=== PATIENT | male | born 1950 | race Asian ===

== ENCOUNTER 2017-07-10 20:04 | Emergency (ER) | payer BC ==
[~2017-07-10] VITALS: Ht 162.6 cm; Wt 84.8 kg
[2017-07-10 20:08] VITALS: BP_SYST 144
[2017-07-10 20:57] LABS: BASOPHILS # (AUTO) 0.1 K/uL (0.0-0.2); BASOPHILS % (AUTO) 0.9 % (0.0-2.0); CALCIUM 9.5 mg/dL (8.4-11.0); CREATININE 1.84 mg/dL (0.55-1.30); EOSINOPHILS # (AUTO) 0.1 K/uL (0.0-0.4); EOSINOPHILS % (AUTO) 0.9 % (0.0-4.0); HEMATOCRIT 46.6 % (36-54); HEMOGLOBIN 15.5 g/dL (14.0-18.0); LYMPHOCYTES # (AUTO) 1.2 K/uL (1.0-5.5); LYMPHOCYTES % (AUTO) 11.7 % (20.5-51.5); MEAN CORPUSCULAR HEMOGLOBIN 29 pg (27-31); MEAN CORPUSCULAR HGB CONC 33 % (32-36); MEAN CORPUSCULAR VOLUME 87 fL (79.0-98.0); MONOCYTES # (AUTO) 0.8 K/uL (0.0-1.0); MONOCYTES % (AUTO) 8.1 % (1.7-9.3); NEUTROPHILS # (AUTO) 7.9 K/uL (1.8-7.7); NEUTROPHILS % (AUTO) 78.4 % (40.0-70.0); PLATELET COUNT (AUTO) 218 K/uL (130-430); POTASSIUM 3.9 mmol/L (3.5-5.1); RED BLOOD CELL COUNT(AUTO) 5.37 MIL/uL (4.2-6.2); RED CELL DISTRIBUTION WIDTH 13.3 % (9.0-15.0); WHITE BLOOD COUNT (AUTO) 10.1 K/uL (4.8-10.8)
[2017-07-10 21:04] LABS: ALBUMIN 4.3 g/dL (3.4-4.8); TOTAL BILIRUBIN 0.7 mg/dL (0.0-1.0)
[2017-07-10] MEDS ORDERED: NACL 0.9% 1,000 ML IV ONE ×2 (21:15→22:30)
[2017-07-10] MEDS ORDERED: MORPHINE 4 MG/ML INJ. SYRINGE IVP ONE (21:15)
[2017-07-10 21:20] LABS: BILIRUBIN,URINE 1+ (NEGATIVE); BLOOD, URINE 3+ (NEGATIVE); CLARITY/URINE CLOUDY (CLEAR); COLOR,URINE BROWN (YELLOW); GLUCOSE,URINE NEGATIVE (NEGATIVE); KETONES,URINE NEGATIVE (NEGATIVE); LEUKOCYTE ESTERASE ,URINE NEGATIVE (NEGATIVE); NITRITE, URINE POSITIVE (NEGATIVE); PROTEIN URINE 2+ (NEGATIVE); UROBILINOGEN,URINE 0.2 (0.2-1.0)
[2017-07-10] MEDS ORDERED: cefTRIAXone 1 GM IVPB PREMIX 50 ML IV ONE (21:30)
[2017-07-10 21:50] LABS: BACTERIA,URINE MANY /HPF (None Seen); RBC,URINE >100 /HPF (0-3); WBC,URINE 20-50 /HPF (0-3)
[2017-07-10 21:51] LABS: MUCUS,URINE None Seen /LPF (None Seen)
[2017-07-10] MEDS ORDERED: LOSA25TA11 PO (22:32)
[2017-07-10] MEDS ORDERED: FLO110 INH (22:32)
[2017-07-10] MEDS ORDERED: LIP10 PO (22:32)
[2017-07-10] MEDS ORDERED: ASA81 PO (22:32)
[2017-07-10] MEDS ORDERED: GLIP5TAB13 PO (22:32)
[2017-07-10] MEDS ORDERED: ASCO500T20 PO (22:32)
[2017-07-10] MEDS ORDERED: METF1000 PO (22:32)
[2017-07-10] MEDS ORDERED: ALBMDI INH (22:32)
[2017-07-10 23:19] VITALS: BP_SYST 152
== END 2017-07-10 23:19 | disposition home or self-care (01) ==
LOC: SED 20:04
DX: K85.90 Acute pancreatitis without necrosis or infection, unspecified (principal); K80.20 Calculus of gallbladder without cholecystitis without obstruction; N20.0 Calculus of kidney; N39.0 Urinary tract infection, site not specified; I10 Essential (primary) hypertension; E11.9 Type 2 diabetes mellitus without complications; Z79.899 Other long term (current) drug therapy
CPT/HCPCS: 36415; 74176; 76700; 80053; 81000; 83605; 83690; 85025; 87040; 87086; 96361; 96365; 96375; 99285; J0696; J2270; J7030

== ENCOUNTER 2019-02-07 22:00 | Inpatient (IN) | payer BC, OTHER ==
[~2019-02-07] VITALS: Ht 162.6 cm; Wt 84.9 kg
[~2019-02-07 22:00] MED LIST: ALBMDI INH; ASA81 PO; ASCO500T20 PO; FLO110 INH; GLIP5TAB13 PO; LIP10 PO; LOSA25TA18 PO; METF1000 PO
[2019-02-07 22:20] VITALS: BP_SYST 199
--- NOTE | 2019-02-07 22:20 | NUR ---
Patient to ER bed 02 to gown for evaluation. Side rails up.
--- NOTE | 2019-02-07 22:35 | NUR ---
Pt brought in by family c/o abdominal pain 01/19 wih increasing severity, nausea and vomiting x2. pt awake alert, oriented. Pt denies chest pain, sob. Pt denies any other medical complaint at this time. 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 Pt states that pain began approx 5 o clock today with increasing severity. Pt in mild distress, guarding abdomen at this time. Pt vs taken and remains on cardiac and VS monitor.
--- NOTE | 2019-02-07 22:40 | NUR ---
ER at bedside examining patient.
[2019-02-07] MEDS ORDERED: MORPHINE 4 MG/ML INJ. SYRINGE IVP ONE (22:45)
[2019-02-07] MEDS ORDERED: ESMOLOL HCL/SOD CL 250 ML IV PRN (22:45)
[2019-02-07] MEDS ORDERED: LIP20 PO (22:46)
--- NOTE | 2019-02-07 22:51 | NUR ---
Pt Taken to radiology department with ACLS Staff and radiology staff bedside via tawny
[2019-02-07 23:02] LABS: BASOPHILS # (AUTO) 0.1 K/uL (0.0-0.2); BASOPHILS % (AUTO) 0.5 % (0.0-2.0); EOSINOPHILS # (AUTO) 0.2 K/uL (0.0-0.4); EOSINOPHILS % (AUTO) 1.5 % (0.0-4.0); HEMATOCRIT 46.8 % (36-54); HEMOGLOBIN 15.6 g/dL (14.0-18.0); LYMPHOCYTES # (AUTO) 1.5 K/uL (1.0-5.5); LYMPHOCYTES % (AUTO) 14.2 % (20.5-51.5); MEAN CORPUSCULAR HEMOGLOBIN 30 pg (27-31); MEAN CORPUSCULAR HGB CONC 33 % (32-36); MEAN CORPUSCULAR VOLUME 88 fL (79.0-98.0); MONOCYTES # (AUTO) 0.6 K/uL (0.0-1.0); MONOCYTES % (AUTO) 5.3 % (1.7-9.3); NEUTROPHILS # (AUTO) 8.3 K/uL (1.8-7.7); NEUTROPHILS % (AUTO) 78.5 % (40.0-70.0); PLATELET COUNT (AUTO) 209 K/uL (130-430); RED CELL DISTRIBUTION WIDTH 13.6 % (9.0-15.0); WHITE BLOOD COUNT (AUTO) 10.5 K/uL (4.8-10.8)
[2019-02-07] MEDS ORDERED: ONDANSETRON HCL 4 MG/2 ML VIAL ONE (23:02)
[2019-02-07] MEDS ORDERED: IOHEXOL 100 ML IV ONE (23:06)
[2019-02-07 23:15] LABS: ANION GAP 6 (5-15); CHLORIDE 99 mmol/L (98-107); CREATININE 1.59 mg/dL (0.55-1.30); GLUCOSE 213 mg/dL (70-99); POTASSIUM 4.2 mmol/L (3.5-5.1); SODIUM SERUM 134 mmol/L (136-145); UREA NITROGEN, BLOOD 25 mg/dL (8-21)
--- NOTE | 2019-02-07 23:15 | NUR ---
Returned from radiology, back to [facility].
[2019-02-07 23:16] LABS: GFR AFRICAN AMERICAN 56 mL/min (>90)
[2019-02-07 23:31] LABS: ALANINE AMINOTRANSFERASE 44 U/L (12-78); ALBUMIN 4.3 g/dL (3.4-4.8); ASPARTATE AMINOTRANSFERASE 24 U/L (10-37); TOTAL BILIRUBIN 0.5 mg/dL (0.0-1.0)
[2019-02-07 23:35] LABS: ALCOHOL, BLOOD < 3 mg/dL (<10)
--- NOTE | 2019-02-07 23:35 | NUR ---
Pt tolerating Pain medication and Esmolol well. Pt responding to Iv therapy well, with expected results. Pt remains restless and guarding of abdomen
[2019-02-07 23:39] LABS: BILIRUBIN,URINE NEGATIVE (NEGATIVE); BLOOD, URINE 1+ (NEGATIVE); CLARITY/URINE CLEAR (CLEAR); COLOR,URINE YELLOW (YELLOW); GLUCOSE,URINE 1+ (NEGATIVE); KETONES,URINE TRACE (NEGATIVE); LEUKOCYTE ESTERASE ,URINE NEGATIVE (NEGATIVE); NITRITE, URINE NEGATIVE (NEGATIVE); PH,URINE 6.5 (5.0-8.0); PROTEIN URINE 2+ (NEGATIVE); UROBILINOGEN,URINE 0.2 (0.2-1.0)
[2019-02-07 23:51] LABS: BARBITURATE, URINE NEGATIVE (NEG <=200); BENZODIAZEPINE, URINE NEGATIVE (NEG <=150); CANNABINOID, URINE NEGATIVE (NEG <=50); COCAINE, URINE NEGATIVE (NEG <=150); METHAMPHETAMINES SCREEN,URINE NEGATIVE (NEG <=500); OPIATE, URINE POSITIVE (NEG <=100); PHENCYCLIDINE SCREEN,URINE NEGATIVE (NEG <=25); UR TRICYCLIC ANTIDEPRESSANTS NEGATIVE (NEG <=300); URINE AMPHETAMINE NEGATIVE (NEG <=500); URINE METHADONE NEGATIVE (NEG <=200); URINE OXYCODONE SCREEN NEGATIVE (NEG <=100); URINE PROPOXYPHENE SCREEN NEGATIVE (NEG <=300)
[2019-02-08 00:13] LABS: BACTERIA,URINE FEW /HPF (None Seen); WBC,URINE 0-3 /HPF (0-3)
[2019-02-08] MEDS ORDERED: PIPERACILLIN/TAZO 3.375 GM in NS 50 ML IV ONE (00:15)
--- NOTE | 2019-02-08 00:20 | NUR ---
Pt States home medications are unknown, and dosages are unknown. Pt states that his daughter will bring medications in AM.
[2019-02-08] MEDS ORDERED: NACL 0.9% 1,000 ML IV ONE (00:45)
--- NOTE | 2019-02-08 00:58 | NUR ---
Called For Admit
[2019-02-08] MEDS ORDERED: ONDANSETRON HCL 4 MG/2 ML VIAL IVP PRN (01:15)
[2019-02-08] MEDS ORDERED: HYDROmorphone 1 MG INJ. 1 MG/ML AMPUL IVP PRN (01:15)
[2019-02-08] MEDS ORDERED: cloNIDine HCL 0.1 MG TABLET PO PRN ×2 (01:15→18:00)
--- NOTE | 2019-02-08 01:20 | NUR ---
Patient will be admitted to care of . Admitted to tele unit. Belongings list completed. Orders recieved and entered.
[2019-02-08] MEDS ORDERED: fentaNYL CITRATE/PF 100 MCG/2 ML AMP IVP ONE ×2 (01:30)
[2019-02-08] MEDS ORDERED: PIPERACILLIN/TAZOBACTAM 3.375 GM/VIAL (ZOSYN) IV ONE (01:57)
--- NOTE | 2019-02-08 02:08 | NUR ---
Patient will be admitted to [facility]. Admitted to Tele unit. Will go to room 120B. Belongings list completed. Summary report printed. Report will be given at bedside.
--- NOTE | 2019-02-08 02:08 | NUR ---
Transfer to Telemetry via ACLS protocol. Licensed nurse present. IV present no signs or symptoms of infiltration.
--- NOTE | 2019-02-08 02:15 | NUR ---
ADMISSION NOTES ADMITTED PATIENT FROM ER 68 Y/O MALE FOR UNCONTROLLED HTN AND ABDOMINAL PAIN. PATIENT AAO X4. BREATHING UNLABORED ON ROOM AIR. PATIENT PROVIDED ORIENTATION TO ROOM, CALL LIGHT SYSTEM, BED AND TV CONTROLS. PATIENT STILL C/O ABDOMINAL PAIN 09/19. BED IN LOWEST LOCKED POSITION. CALL LIGHT WITH IN REACH.
--- NOTE | 2019-02-08 02:35 | NUR ---
CONSULT: CONSULT CALLED FOR DR. ROBBINS I SPOKE WITH ZEKE DEY REASON FOR CONSULT: UNCONTROLLED HYPERTENSION REQUESTING CONSULT: DR. LOPEZ LAP CHECKER PHONE NUMBER: [phone]
[2019-02-08] MEDS: HYDROmorphone 1 MG INJ. 1 MG/ML AMPUL IVP PRN ×2 (02:59→07:26)
--- NOTE | 2019-02-08 02:59 | NUR ---
PAIN MGT/BP PATIENT MEDICATED WITH DILAUDID 1 MG ORDERED FOR C/O 810 ABDOMINAL PAIN. CLONIDINE 0.1 MG FOR BP OF 182/87. AT BEDSIDE.
[2019-02-08 03:05] VITALS: BP_SYST 182
--- NOTE | 2019-02-08 05:55 | NUR ---
[id number]: CONSULT FOR DR. SANG UP I SPOKE WITH GENE EXCHANGE REASON FOR CONSULT: ABD PAIN REQUESTING CONSULT: DR. LOPEZ BRIDAL SALES CONSULTANT PHONE NUMBER: [phone]
[2019-02-08] MEDS: INSULIN REGULAR, HUMAN 100 UNITS/ML, 10 ML VIAL (humuLIN R) SUBCUT PRN ×3 (06:11→20:19)
--- NOTE | 2019-02-08 06:33 | NUR ---
CLOSING NOTES PATIENT RESTING IN BED. BREATHING UNLABORED ON ROOM AIR. AM FINGER STICK SUGAR 165. 2 UNITS OF REGULAR INSULIN GIVEN PER SLIDING SCALE ORDER. BP RECHECKED 154/[address] DOMÍNGUEZ CALLED BACK FOR SURGICAL CONSULT PER MD HE COME SEE PATIENT TODAY. PATIENT NEEDS ATTENDED. BED IN LOWEST LOCKED POSITION. CALL LIGHT WITH IN REACH. AT BEDSIDE.
--- NOTE | 2019-02-08 07:20 | NUR ---
OPENING NOTE: Received SBAR report and plan of care from inside sales director RN
[2019-02-08 08:00] VITALS: BP_SYST 122
--- NOTE | 2019-02-08 09:00 | NUR ---
Patient resting in bed, at bedside. Patient denies chest pain, denies SOB, states that stomach pain has become manageable with PRN pain med given on powder worker tnt.
--- NOTE | 2019-02-08 09:55 | NUR ---
Radiology at bedside for chest xray
[2019-02-08 10:03] LABS: AMYLASE 75 U/L (0-100); CHOLESTEROL 123 mg/dL (<200); HDL CHOLESTEROL 46 mg/dL (>45); LDL CHOLESTEROL 68 mg/dL (<100); LIPASE 216 U/L (73-393); TRIGLYCERIDES 39 mg/dL (30-150)
--- NOTE | 2019-02-08 10:25 | NUR ---
Pickle Processor at bedside for echocardiogram
[2019-02-08] MEDS: NACL 0.9% 1,000 ML IV SCH ×2 (10:31→22:31)
--- NOTE | 2019-02-08 11:00 | NUR ---
Patient remains AOx4, verbal and ambulatory. Patient resting in bed with family at bedside. Breathing is even and unlabored, no signs of distress noted. #20 IV to RT AC intact, patent with IVF pump running.
[2019-02-08 11:23] VITALS: BP_SYST 113
--- NOTE | 2019-02-08 13:00 | NUR ---
Patient tolerating clear liquid diet well. Assisted patient to bathroom, patient ambulated well with a steady gait. Family is at bedside. No signs of distress noted.
[2019-02-08] MEDS ORDERED: DEXTROSE 50% JECT 50 ML DISP.SYRIN IVP PRN (14:15)
[2019-02-08 14:33] LABS: BASOPHILS # (AUTO) 0.1 K/uL (0.0-0.2); BASOPHILS % (AUTO) 0.6 % (0.0-2.0); EOSINOPHILS # (AUTO) 0.1 K/uL (0.0-0.4); EOSINOPHILS % (AUTO) 1.2 % (0.0-4.0); HEMATOCRIT 42.3 % (36-54); HEMOGLOBIN 14.1 g/dL (14.0-18.0); LYMPHOCYTES # (AUTO) 1.6 K/uL (1.0-5.5); LYMPHOCYTES % (AUTO) 15.7 % (20.5-51.5); MEAN CORPUSCULAR HEMOGLOBIN 29 pg (27-31); MEAN CORPUSCULAR HGB CONC 33 % (32-36); MEAN CORPUSCULAR VOLUME 88 fL (79.0-98.0); MONOCYTES # (AUTO) 1.1 K/uL (0.0-1.0); MONOCYTES % (AUTO) 11.1 % (1.7-9.3); NEUTROPHILS # (AUTO) 7.1 K/uL (1.8-7.7); NEUTROPHILS % (AUTO) 71.4 % (40.0-70.0); PLATELET COUNT (AUTO) 185 K/uL (130-430); RED BLOOD CELL COUNT(AUTO) 4.79 MIL/uL (4.2-6.2); RED CELL DISTRIBUTION WIDTH 13.8 % (9.0-15.0)
[2019-02-08 14:47] LABS: ANION GAP 5 (5-15); CALCIUM 8.1 mg/dL (8.4-11.0); CHLORIDE 100 mmol/L (98-107); GLUCOSE 150 mg/dL (70-99); POTASSIUM 3.8 mmol/L (3.5-5.1); SODIUM SERUM 133 mmol/L (136-145); UREA NITROGEN, BLOOD 20 mg/dL (8-21)
--- NOTE | 2019-02-08 14:50 | NUR ---
Nuclear Spectroscopist at bedside to transport patient to radiology for CT of chest.
[2019-02-08 14:53] LABS: PROTHROMBIN TIME 10.3 SECS (9.5-12.5)
[2019-02-08 14:55] LABS: GFR AFRICAN AMERICAN 56 mL/min (>90)
[2019-02-08 14:56] LABS: ALANINE AMINOTRANSFERASE 34 U/L (12-78); ALBUMIN 3.5 g/dL (3.4-4.8); ASPARTATE AMINOTRANSFERASE 15 U/L (10-37); PHOSPHORUS 3.7 mg/dL (2.7-4.5); TOTAL BILIRUBIN 0.7 mg/dL (0.0-1.0); URIC ACID 6.2 mg/dL (2.4-7.0)
--- NOTE | 2019-02-08 15:00 | NUR ---
Patient resting in bed, no complaints of any kind. Denies chest pain, denies SOB, no signs of distress noted. Addendum: 02/08/19 at 1633 by Jered Mojica RN DISREGARD NOTE ENTERED FOR INCORRECT TIME
--- NOTE | 2019-02-08 15:15 | NUR ---
Patient returned from CT scan, tolerated well with minimal discomfort.
--- NOTE | 2019-02-08 15:30 | NUR ---
Patient resting in bed, no complaints of any kind. Denies chest pain, denies SOB, no signs of distress noted.
[2019-02-08 15:59] VITALS: BP_SYST 111
--- NOTE | 2019-02-08 17:00 | NUR ---
Patient awake, remains Aox4, resting in bed with family at bedside. No signs of distress noted.
--- NOTE | 2019-02-08 17:03 | NUR ---
Per Dr. Santos patient is cleared for surgery.
[2019-02-08] MEDS ORDERED: TAMSULOSIN HCL 0.4 MG CAP PO ONE (18:00)
--- NOTE | 2019-02-08 19:25 | NUR ---
Gave SBAR report and endorsed plan of care to retail shift manager RN
--- NOTE | 2019-02-08 19:30 | NUR ---
Initial Notes Received handoff report from offgoing nurse at the bedside. Patient is AAOx4, resting comfortably in bed. No SOB, no acute distress, no complaints of pain at this time. Bed is locked, lowest position, 2x side rails up, bed alarm is on. Call light within reach. Encouraged patient to call for assistance. IVF infusing per MD order. Will continue with plan of care. Patient verbalizes understanding that he is supposed to be NPO after midnight.
[2019-02-08 20:00] VITALS: BP_SYST 126
[2019-02-08] MEDS: AMPICILLIN SODIUM/SULBACTAM NA 3 GM in NS 100 ML IV SCH (20:12)
[2019-02-08] MEDS: ATORVASTATIN 20 MG TABLET PO SCH (20:12)
--- NOTE | 2019-02-08 22:00 | NUR ---
Patient ambulated to the restroom and back to bed independently with steady gait. Now resting comfortably in bed. Patient's and 2 [id number] are at the bedside. No SOB, no complaints of pain at this time. No nausea. Will continue with plan of care.
--- NOTE | 2019-02-08 23:56 | NUR ---
Patient resting comfortably in bed, eyes closed. Breathing even and unlabored, visible chest rise and fall noted. No SOB, no acute distress, no signs of pain or facial grimacing noted. IVF infusing per MD order, see eMAR for details. Bed is locked, in the lowest position, 2x side rails up, bed alarm is on. Call light within reach.
[2019-02-09] VITALS (7 sets, daily range): BP systolic 121–149
[2019-02-09] MEDS: AMPICILLIN SODIUM/SULBACTAM NA 3 GM in NS 100 ML IV SCH ×5 (00:58→23:22)
--- NOTE | 2019-02-09 01:04 | NUR ---
Son-In-Law at the bedside, awake, aware of plan of care. Patient resting in bed, eyes closed. Breathing even and unlabored with visible chest rise and fall noted. No SOB, no acute distress, no signs of pain or facial grimacing noted. IV antibiotic unasyn infusing per md order, see eMAR. Bed is locked, lowest position, 2x side rails up, bed alarm is on. Call light within reach.
--- NOTE | 2019-02-09 03:00 | NUR ---
Patient resting comfortably in bed. eyes closed. Breathing even and unlabored. No significant changes. Will continue with plan of care. Son-in-law at the bedside sleeping.
--- NOTE | 2019-02-09 05:04 | NUR ---
Patient resting comfortably in bed, eyes closed. Breathing even and unlabored. Visible chest rise and fall noted. No SOB, no acute distress, no signs of pain or facial grimacing noted. Son-in-law at the bedside, awake and using his cell phone. Will continue with plan of care.
[2019-02-09 06:29] LABS: BASOPHILS # (AUTO) 0.1 K/uL (0.0-0.2); BASOPHILS % (AUTO) 0.6 % (0.0-2.0); EOSINOPHILS # (AUTO) 0.3 K/uL (0.0-0.4); EOSINOPHILS % (AUTO) 2.9 % (0.0-4.0); HEMATOCRIT 40.2 % (36-54); HEMOGLOBIN 13.6 g/dL (14.0-18.0); LYMPHOCYTES # (AUTO) 1.6 K/uL (1.0-5.5); LYMPHOCYTES % (AUTO) 16.1 % (20.5-51.5); MEAN CORPUSCULAR HEMOGLOBIN 30 pg (27-31); MEAN CORPUSCULAR HGB CONC 34 % (32-36); MEAN CORPUSCULAR VOLUME 88 fL (79.0-98.0); MONOCYTES # (AUTO) 1.2 K/uL (0.0-1.0); MONOCYTES % (AUTO) 12.4 % (1.7-9.3); NEUTROPHILS # (AUTO) 6.8 K/uL (1.8-7.7); PLATELET COUNT (AUTO) 174 K/uL (130-430); RED BLOOD CELL COUNT(AUTO) 4.56 MIL/uL (4.2-6.2); RED CELL DISTRIBUTION WIDTH 13.4 % (9.0-15.0)
--- NOTE | 2019-02-09 06:32 | NUR ---
Closing Notes Patient is resting comfortably in bed, AAOx4. IV site intact, dressing clean and dry, currently infusing ivpb unasyn per MD order, see emar. Bed is locked, in the lowest position, 2x side rails up, bed alarm is on. Call light is within reach. Fall and safety precautions maintained. All needs have been met during this shift. Will endorse care to oncoming dayshift nurse. son-in-law at the bedside.
[2019-02-09 06:45] LABS: INR 1.1 (0.80-1.20); PROTHROMBIN TIME 10.9 SECS (9.5-12.5)
[2019-02-09 06:55] LABS: ALANINE AMINOTRANSFERASE 31 U/L (12-78); ALBUMIN 3.2 g/dL (3.4-4.8); ANION GAP 6 (5-15); ASPARTATE AMINOTRANSFERASE 20 U/L (10-37); CALCIUM 7.3 mg/dL (8.4-11.0); CHLORIDE 104 mmol/L (98-107); CREATININE 1.57 mg/dL (0.55-1.30); GLUCOSE 127 mg/dL (70-99); POTASSIUM 3.7 mmol/L (3.5-5.1); SODIUM SERUM 136 mmol/L (136-145); TOTAL BILIRUBIN 1.2 mg/dL (0.0-1.0); UREA NITROGEN, BLOOD 15 mg/dL (8-21)
[2019-02-09 07:00] LABS: GFR AFRICAN AMERICAN 57 mL/min (>90)
--- NOTE | 2019-02-09 08:00 | NUR ---
ASSUMPTION OF CARE: RECEIVED PT ASLEEP, EASILY AROUSED VIA VERBAL STIMULI, DX:ALTERATION IN COMFORT, R/T ABD PAIN. CONDITION IS STABLE, VS WNL, NO C/O PAIN AT THIS TIME, AFEBRILE, BREATH SOUNDS ARE CLEAR, BREATHING UNLABORED, IV SITE INTACT, PATENT, NO REDNESS OR SWELLING, ORIENTED TO UNIT, CALL LIGHT PLACED WITHIN REACH, WILL CONT' TO MONITOR AND ASSESS.
[2019-02-09] MEDS: TAMSULOSIN HCL 0.4 MG CAP PO SCH (09:00)
[2019-02-09] MEDS: ASPIRIN 81 MG TAB.CHEW PO SCH (09:00)
[2019-02-09] MEDS: NACL 0.9% 1,000 ML IV SCH (10:05)
--- NOTE | 2019-02-09 10:16 | NUR ---
Preoperative Learning Guided patient through process of IS to promote deep breathing and prevent atelectasis. In case of any pain, especially abdomen, to hug a pillow for support. Also to increase and maintain fluids once he progressively starts eating. Patient verbalized understanding.
--- NOTE | 2019-02-09 10:30 | NUR ---
CHG: CHG BATH GIVEN, TOLERATED WELL, ALL LINEN CHANGED, PRE-PROCEDURAL EDUCATION GIVEN, VERBALIZES UNDERSTANDING, FAMILY AT BEDSIDE, CALL LIGHT WITHIN REACH, WILL CONT' WITH POC.
--- NOTE | 2019-02-09 11:45 | NUR ---
GLUCOSE MONITORING: BLOOD SUGAR [id number], NO COVERAGE REQUIRED, PT NPO, WILL CONT' WITH POC.
--- NOTE | 2019-02-09 11:55 | NUR ---
VISIT: AT BEDSIDE FOR ASSESSMENT OF PT, DISCUSSED WITH PT AND FAMILY POC, VERBALIZES UNDERSTANDING, WILL CONT' TO MONITOR AND ASSESS.
--- NOTE | 2019-02-09 12:00 | NUR ---
VISIT: AT BEDSIDE FOR ASSESSMENT OF PT, DISCUSSED WITH PT AND FAMILY POC, VERBALIZES UNDERSTANDING, WILL CONT' TO MONITOR AND ASSESS.
[2019-02-09] MEDS: CALCIUM CARBONATE 500 MG/ TAB.CHEW PO SCH ×3 (12:30→20:13)
--- NOTE | 2019-02-09 12:30 | NUR ---
OR: PT OFF UNIT TO OR FOR SCHEDULED GALLBLADDER REMOVAL. CONSENTS SIGNED BY PT, , FAMILY AWARE, WILL CONT' WITH POC.
[2019-02-09] MEDS ORDERED: IOHEXOL 50 ML IV ONE (12:50)
[2019-02-09] MEDS ORDERED: LR 1,000 ML IV SCH (14:05)
[2019-02-09] MEDS ORDERED: DILTIAZEM HCL 25 MG/5 ML VIAL ONE ×2 (14:11→15:25)
[2019-02-09] MEDS ORDERED: HYDROmorphone 1 MG INJ. 1 MG/ML AMPUL IVP PRN (14:15)
[2019-02-09] MEDS ORDERED: MEPERIDINE HCL/PF 25 MG/ML DISP.SYRIN IVP PRN (14:15)
[2019-02-09] MEDS ORDERED: HYDROmorphone 2 MG/ML VIAL IVP PRN ×2 (14:15)
[2019-02-09] MEDS ORDERED: METOCLOPRAMIDE HCL 10 MG/2 ML VIAL ONE (15:25)
[2019-02-09] MEDS ORDERED: NS 1000 ML IV.SOLN IV ONE (15:25)
[2019-02-09] MEDS ORDERED: DEXAMETHASONE SOD PHOSPHATE 4 MG/ML VIAL ONE (15:25)
[2019-02-09] MEDS ORDERED: MORPHINE SULFATE 10 MG/ML VIAL ONE (15:25)
[2019-02-09] MEDS ORDERED: SUGAMMADEX SODIUM 200 MG/2 ML VIAL IV ONE (15:25)
[2019-02-09] MEDS ORDERED: ONDANSETRON HCL 4 MG/2 ML VIAL ONE (15:25)
[2019-02-09] MEDS ORDERED: MIDAZOLAM HCL 5 MG/ML VIAL (VERSED) IV ONE (15:25)
[2019-02-09] MEDS ORDERED: BUPIVACAINE /EPINEPHRINE/PF 0.25% 30 ML VIAL INJ ONE (15:25)
[2019-02-09] MEDS ORDERED: SEVOFLURANE 15 MIN GAS INH ONE (15:25)
[2019-02-09] MEDS ORDERED: PROPOFOL 200MG/ 20ML VIAL (DIPRIVAN) IV ONE (15:25)
[2019-02-09] MEDS ORDERED: KETOROLAC TROMETHAMINE 30 MG VIAL ONE (15:25)
[2019-02-09] MEDS ORDERED: fentaNYL CITRATE 250 MCG/5 ML AMP ONE (15:25)
[2019-02-09] MEDS ORDERED: ROCURONIUM BROMIDE 10 MG/ML (ZEMURON) ONE (15:25)
[2019-02-09] MEDS ORDERED: NS IRRIG SOLN 1000 ML IR ONE (15:25)
[2019-02-09] MEDS ORDERED: HYDROmorphone 2 MG/ML VIAL ONE (16:11)
[2019-02-09] MEDS ORDERED: MORPHINE 4 MG/ML INJ. SYRINGE IVP PRN (16:15)
[2019-02-09] MEDS ORDERED: ACETAMINOPHEN/CODEINE 300 MG-30 MG TABLET PO PRN (16:15)
[2019-02-09] MEDS ORDERED: ONDANSETRON HCL 4 MG/2 ML VIAL IVP PRN (16:15)
--- NOTE | 2019-02-09 17:00 | NUR ---
GLUCOSE MONITORING: BLOOD SUGAR [id number], NO COVERAGE REQUIRED, PT NPO, WILL CONT' WITH POC.
--- NOTE | 2019-02-09 17:00 | NUR ---
POST OP: PT RETURNED TO ROOM S/P MARY KRAFT, CONDITION IS STABLE, EASILY AROUSED VIA VERBAL STIMULI, ABD HAS SURGICAL DRSG X 4, CLEAN, DRY AND INTACT, WITH RIGHT SIDE ANTON DRAIN THAT HAS SMALL AMT BROWNISH COLORED OUTPUT<10CC, NO C/O PAIN AT THIS TIME, VSS, CALL LIGHT PLACED WITHIN REACH, AND FAMILY AT BEDSIDE, WILL CONT' TO MONITOR AND ASSESS.
--- NOTE | 2019-02-09 19:45 | NUR ---
OPENING NOTES PATIENT IS LAYING IN BED AND TALKING TO FAMILY MEMBERS AT BEDSIDE. NO SIGNS OR SYMPTOMS OF DISTRESS NOTED. PATIENT VERBALIZES NO PAIN. PLAN OF CARE IS DISCUSSED WITH PATIENT AND FAMILY. ANTON DRAIN EMPTIED AT THIS TIME. PATIENT IS REPOSITION FOR COMFORT. BED IS LOCKED, ALARMED, AND AT THE LOWEST POSITION. PATIENT SUCCESSFULLY DEMONSTRATES USAGE OF CALL LIGHT. FALL, SAFETY, ASPIRATION, AND RESPIRATORY PRECAUTION WILL BE IN PLACE THROUGHOUT THE SHIFT.
[2019-02-09] MEDS: ATORVASTATIN 20 MG TABLET PO SCH (20:13)
[2019-02-09] MEDS: INSULIN REGULAR, HUMAN 100 UNITS/ML, 10 ML VIAL (humuLIN R) SUBCUT PRN (20:27)
--- NOTE | 2019-02-09 21:45 | NUR ---
INCENTIVE SPIROMETER TEACHING INCENTIVE SPIROMETER TEACHING DONE AT THIS TIME. PATIENT SUCCESSFUL DEMONSTRATES USAGE OF INCENTIVE SPIROMETER. PATIENT VERBALIZE KNOWLEDGE TO "PRACTICE 10 TIMES AN HOUR." HE IS AVERAGING AROUND 1500 ML AT THIS TIME WITH MINIMAL ABD DISCOMFORT. HIS O2 SAT ON ROOM AIR IS 97%. WILL CONTINUE TO ENCOURAGE USAGE OF INCENTIVE SPIROMETER THOUGHT THE SHIFT. NO SIGNS OF SYMPTOMS OF RESPIRATORY DISTRESS NOTED. BED AT LOWEST POSITION, LOCKED, AND ALARMED. CALL LIGHT WITHIN REACH.
--- NOTE | 2019-02-09 23:45 | NUR ---
ROUNDING PATIENT IS SLEEPING IN BED. NO SIGNS OR SYMPTOMS OF RESPIRATORY DISTRESS NOTED. BED IS LOCKED, ALARMED, AND AT THE LOWEST POSITION. CALL LIGHT IS WITHIN REACH. WILL CONTINUE TO MONITOR THROUGHOUT THE SHIFT.
[2019-02-10 01:27] VITALS: BP_SYST 149
--- NOTE | 2019-02-10 01:45 | NUR ---
ROUNDING PATIENT IS LAYING IN BED AND WATCHING TV. NO SIGNS OR SYMPTOMS OF RESPIRATORY DISTRESS NOTED. BED IS LOCKED, ALARMED, AND AT THE LOWEST POSITION. CALL LIGHT IS WITHIN REACH. WILL CONTINUE TO MONITOR THROUGHOUT THE SHIFT.
--- NOTE | 2019-02-10 03:16 | NUR ---
Paged Dr. Fontanez [phone] s/w Patrick
[2019-02-10] MEDS ORDERED: MORPHINE 2 MG/ML INJ. SYRINGE IVP PRN (03:30)
[2019-02-10] MEDS: MORPHINE 4 MG/ML INJ. SYRINGE IVP PRN ×3 (03:39→07:53)
--- NOTE | 2019-02-10 03:40 | NUR ---
COMMUNICATION WITH DR. LOPEZ PATIENT'S COMPLAINT THAT PRN MEDICATION GIVEN FOR SEVERE PAIN DID NOT LAST FOR 4 HOURS WAS COMMUNICATED TO DR. LOPEZ. HAS GIVEN NEW ORDERS. ORDERS READ BACK, VERIFIED, AND WILL BE GIVEN ONCE PHARMACY APPROVES.
--- NOTE | 2019-02-10 03:45 | NUR ---
NOTE PRN MEDICATION FOR PAIN WILL BE GIVEN AT THIS TIME. PATIENT IS RESTING IN BED, STABLE, NO SIGNS OR SYMPTOMS OF RESPIRATORY DISTRESS NOTED. CALL LIGHT IS WITHIN REACH. BED IS LOCKED, ALARMED, AND AT THE LOWEST POSITION.
--- NOTE | 2019-02-10 05:45 | NUR ---
NOTE PRN MEDICATION FOR PAIN WILL BE GIVEN AT THIS TIME. IS AT BEDSIDE. PATIENT IS RESTING IN BED, STABLE, NO SIGNS OR SYMPTOMS OF RESPIRATORY DISTRESS NOTED. CALL LIGHT IS WITHIN REACH. BED IS LOCKED, ALARMED, AND AT THE LOWEST POSITION.
[2019-02-10] MEDS: AMPICILLIN SODIUM/SULBACTAM NA 3 GM in NS 100 ML IV SCH ×4 (05:49→23:02)
[2019-02-10] MEDS: NACL 0.9% 1,000 ML IV SCH (05:50)
--- NOTE | 2019-02-10 06:10 | NUR ---
CLOSING NOTES PATIENTS PAIN WAS MANAGED THROUGHOUT THE SHIFT. AT THIS TIME, PATIENT IS IN BED, STABLE, NO SIGNS OR SYMPTOMS OF RESPIRATORY DISTRESS. CALL LIGHT IS WITHIN REACH. BED IS LOCKED, ALARMED, AND AT THE LOWEST POSITION. FALL, SAFETY, ASPIRATION, AND REPARATORY PRECAUTION HAS BEEN PLACED THROUGHOUT THE SHIFT. WILL CONTINUE TO MONITOR UNTIL REPORT IS GIVEN TO AM NURSE.
[2019-02-10 06:36] LABS: HEMATOCRIT 37.5 % (36-54); HEMOGLOBIN 12.3 g/dL (14.0-18.0); LYMPHOCYTES # (AUTO) 0.8 K/uL (1.0-5.5); LYMPHOCYTES % (AUTO) 6.1 % (20.5-51.5); MEAN CORPUSCULAR HEMOGLOBIN 29 pg (27-31); MEAN CORPUSCULAR HGB CONC 33 % (32-36); MEAN CORPUSCULAR VOLUME 90 fL (79.0-98.0); MONOCYTES % (AUTO) 7.6 % (1.7-9.3); NEUTROPHILS # (AUTO) 10.8 K/uL (1.8-7.7); NEUTROPHILS % (AUTO) 86.3 % (40.0-70.0); PLATELET COUNT (AUTO) 159 K/uL (130-430); RED BLOOD CELL COUNT(AUTO) 4.19 MIL/uL (4.2-6.2); RED CELL DISTRIBUTION WIDTH 13.5 % (9.0-15.0); WHITE BLOOD COUNT (AUTO) 12.6 K/uL (4.8-10.8)
[2019-02-10 06:42] LABS: ALBUMIN 2.9 g/dL (3.4-4.8); CREATININE 1.45 mg/dL (0.55-1.30); PHOSPHORUS 3.7 mg/dL (2.7-4.5); POTASSIUM 4.1 mmol/L (3.5-5.1); TOTAL BILIRUBIN 0.8 mg/dL (0.0-1.0)
--- NOTE | 2019-02-10 06:53 | NUR ---
Nutrition Update Sae Scale 17 noted. Pt admitted for Uncontrolled HTN, Abdominal Pain Diet: Full liquid BMI: 32.1 kg/m2 RD to follow per nutrition care standards.
[2019-02-10 07:36] LABS: CALCIUM 7.1 mg/dL (8.4-11.0)
[2019-02-10 07:37] VITALS: BP_SYST 149
[2019-02-10] MEDS: TAMSULOSIN HCL 0.4 MG CAP PO SCH ×2 (07:52→20:58)
[2019-02-10] MEDS: CALCIUM CARBONATE 500 MG/ TAB.CHEW PO SCH ×4 (07:52→20:58)
--- NOTE | 2019-02-10 09:18 | NUR ---
GI Patient passing gas abdominal discomfort much better, able to take a nap,abdominal incision dressing dry/intact, will monitor.
[2019-02-10] MEDS ORDERED: MILK OF MAGNESIA 30 ML UDC PO PRN (09:30)
--- NOTE | 2019-02-10 09:40 | NUR ---
Mobility /GI Ambulate with physical therapy using FWW tolerates well no dizziness right abdominal discomfort tolerable , passing gas s verbalized, breakfast served tolerates well no nausea no vomiting.
[2019-02-10] MEDS ORDERED: BISACODYL 5 MG TABLET.DR (DULCOLAX) PO ONE (09:45)
[2019-02-10] MEDS: CHOLECALCIFEROL (VITAMIN D3) 2,000 UNIT TABLET PO SCH (10:16)
[2019-02-10] MEDS: ASPIRIN 81 MG TAB.CHEW PO SCH (10:16)
[2019-02-10 10:45] VITALS: BP_SYST 144
--- NOTE | 2019-02-10 13:00 | NUR ---
Nutrition Advance diet to soft low fat,ccho diet tolerated well no nausea no vomiting , patient sitting in the edge of the bed , abdominal dressing dry/intact ,will monitor
[2019-02-10 15:43] VITALS: BP_SYST 136
--- NOTE | 2019-02-10 15:48 | NUR ---
PATIENT RESTING: Patient resting quietly. No acute distress noted. Vital signs within normal range.
--- NOTE | 2019-02-10 18:30 | NUR ---
Patient ambulates after meal , tolerates well minimal pain ,using incentive spirometer reaching 1500 ml verbalized importance .
--- NOTE | 2019-02-10 19:42 | NUR ---
Opening Notes Received patient in bed resting, aaox4 and able to verbalize needs. family at the bedside attending to the patient. IV site intact clean and dry. oriented to the room and use of the call light. No pain or sob at this time. S/p sx. Fall precautions in place, bed low and locked. Bed alarm refused and patient education on risk and benefits provided. Will monitor on rounds.
[2019-02-10 20:00] VITALS: BP_SYST 135
[2019-02-10] MEDS: ATORVASTATIN 20 MG TABLET PO SCH (20:58)
--- NOTE | 2019-02-10 22:13 | NUR ---
PATIENT IN BED SLEEPING WITH APPEARANCE OF PAIN OR SOB. WILL CONTINUE TO MONITOR ON ROUNDS.
[2019-02-10] MEDS: ACETAMINOPHEN 325 MG TABLET PO PRN (23:03)
[2019-02-11 00:05] VITALS: BP_SYST 124
--- NOTE | 2019-02-11 00:26 | NUR ---
PATIENT IN BED RESTING. AMBULATED TO THE BATHROOM WITH STANDBY ASSISTANCE. EMPTIED ANTON DRAIN 30ML. URINE OUTPUT OF 650ML. NO BOWEL MOVEMENT BUT IS PASSING GAS. ACTIVE BOWEL SOUNDS.
--- NOTE | 2019-02-11 02:14 | NUR ---
PATIENT ASLEEP IN BED. NO APPEARANCE OF PAIN OR RESPIRATORY DISTRESS. CALL LIGHT WITHIN REACH.
--- NOTE | 2019-02-11 04:08 | NUR ---
NO CHANGE IN CONDITION.
[2019-02-11] MEDS: AMPICILLIN SODIUM/SULBACTAM NA 3 GM in NS 100 ML IV SCH ×2 (06:05→11:20)
[2019-02-11 06:12] LABS: CALCIUM 7.7 mg/dL (8.4-11.0); CREATININE 1.52 mg/dL (0.55-1.30); POTASSIUM 3.7 mmol/L (3.5-5.1); TOTAL BILIRUBIN 1.1 mg/dL (0.0-1.0)
--- NOTE | 2019-02-11 06:26 | NUR ---
CLOSING NOTES ADMINISTERED PO MEDICATION, GLIPIZIDE, AND IV ANTIBIOTICS AND TOLERATED WELL. BS 73, NO INSULIN COVERAGE NOT INDICATED. LEFT ORANGE JUICE AT THE BEDSIDE. IV SITE INTACT CLEAN AND DRY. SAFETY PRECAUTIONS IN PLACE. FAMILY AT THE BEDSIDE. ANTON DRAIN HAS MINIMUM RED DRAINAGE. ABDOMINAL INCISION SITES CDI. ALL NEEDS HAVE BEEN MET AND WILL ENDORSE CARE TO ONCOMING SHIFT.
[2019-02-11 07:14] LABS: BASOPHILS # (AUTO) 0.1 K/uL (0.0-0.2); BASOPHILS % (AUTO) 0.5 % (0.0-2.0); EOSINOPHILS # (AUTO) 0.2 K/uL (0.0-0.4); EOSINOPHILS % (AUTO) 1.7 % (0.0-4.0); HEMATOCRIT 36.7 % (36-54); HEMOGLOBIN 12.3 g/dL (14.0-18.0); LYMPHOCYTES # (AUTO) 1.5 K/uL (1.0-5.5); LYMPHOCYTES % (AUTO) 14.4 % (20.5-51.5); MEAN CORPUSCULAR HEMOGLOBIN 30 pg (27-31); MEAN CORPUSCULAR HGB CONC 34 % (32-36); MEAN CORPUSCULAR VOLUME 89 fL (79.0-98.0); MONOCYTES # (AUTO) 1.2 K/uL (0.0-1.0); NEUTROPHILS # (AUTO) 7.4 K/uL (1.8-7.7); NEUTROPHILS % (AUTO) 71.4 % (40.0-70.0); PLATELET COUNT (AUTO) 160 K/uL (130-430); RED BLOOD CELL COUNT(AUTO) 4.14 MIL/uL (4.2-6.2); RED CELL DISTRIBUTION WIDTH 13.5 % (9.0-15.0); WHITE BLOOD COUNT (AUTO) 10.4 K/uL (4.8-10.8)
[2019-02-11 08:00] VITALS: BP_SYST 138
--- NOTE | 2019-02-11 08:00 | NUR ---
Note Pt OOB with standby assist from family member at bedside, to the restroom. Abdominal incision intact with surgical dressing and ANTON drain on right side. No SOB/resp distress or severe abdominal pain/discomfort noted at this time. IV in right AC intact and patent at this time. Tele unit attached and intact. No needs noted at this time. Call light within reach.
[2019-02-11] MEDS: ASPIRIN 81 MG TAB.CHEW PO SCH (08:43)
[2019-02-11] MEDS: CALCIUM CARBONATE 500 MG/ TAB.CHEW PO SCH ×2 (08:44→12:03)
[2019-02-11] MEDS: TAMSULOSIN HCL 0.4 MG CAP PO SCH (08:44)
[2019-02-11] MEDS: CHOLECALCIFEROL (VITAMIN D3) 2,000 UNIT TABLET PO SCH (08:44)
[2019-02-11] MEDS: ACETAMINOPHEN 325 MG TABLET PO PRN (10:14)
--- NOTE | 2019-02-11 10:40 | NUR ---
Note Pt was assisted to restroom with standby assist. Pt returned to bed and was assisted with clean gown and bed linens. Pt requested his ANTON drain be emptied at this time. Pt was given Tylenol for mild pain. Call light within reach.
[2019-02-11 12:00] VITALS: BP_SYST 136
--- NOTE | 2019-02-11 13:00 | NUR ---
Note Pt ambulated in hallway with PT and FWW. Tolerated ambulation well. Pt's at side during ambulation in the hallway.
--- NOTE | 2019-02-11 14:00 | NUR ---
Note Dr Cooley and Dr Fontanez at pt's bedside and assessment was done and verbal discharge instructions given. Questions/concerns were answered at this time as well. Pt's tele unit was dc'd and returned to library monitor. ANTON drain was dc'd per Dr Cooley's order. ANTON drain dc'd and gauze was applied. Bleeding minimal at this time. Pt resting in bed at this time. Pt's has been at bedside all shift.
[2019-02-11 15:04] VITALS: BP_SYST 129
[2019-02-11] MEDS ORDERED: FLU VACC TS2019(65UP)/MF59C/PF 45 MCG/0.5 ML SYRINGE I.M. PRN (15:15)
--- NOTE | 2019-02-11 16:00 | NUR ---
Note Pt and were given discharge instructions and note for work. Pt's IV in right AC was dc'd - site benign. No bleeding/drainage/swelling/tenderness as site noted at this time. Pt's was given instructions on keeping 4 lap incisions clean and intact. Shower instructions were given as well at this time. Pt dressed in street clothes with assist from . Pt and his packed all belongings and checked side table/drawers for belongings. All 4 lap sites CDI with steri strips at this time. No redness/drainage/bleeding/odor noted at this time. Pt stable. No SOB/resp distress or severe abdominal pain/discomfort was noted. Pt was checked on q1' and PRN all shift for needs and care. No needs noted.
--- NOTE | 2019-02-11 16:05 | NUR ---
Note Pt off the floor via wheelchair with by his side to private car with all belongings.
[2019-02-13 13:11] LABS: % FREE PSA 25.7 % (.); FREE PSA 0.18 ng/mL; PROSTATE SPECIFIC AG TOTAL 0.7 ng/mL (0.0-4.0)
== END 2019-02-11 16:00 | disposition home or self-care (01) | DRG 418 ==
LOC: SED 22:00 → STU 02-08 01:10 → SMU 02-11 13:10
PROVIDERS: ADMIT Internal Medicine; ATTEND Internal Medicine
PROC: BF121ZZ Fluoroscopy of Gallbladder using Low Osmolar Contrast (ICD-10-PCS; 2019-02-09)
PROC: 0FT44ZZ Resection of Gallbladder, Percutaneous Endoscopic Approach (ICD-10-PCS; principal; 2019-02-09 12:30)
DX: K80.12 Calculus of gallbladder with acute and chronic cholecystitis without obstruction (principal); N17.9 Acute kidney failure, unspecified; E66.9 Obesity, unspecified; K76.0 Fatty (change of) liver, not elsewhere classified; K44.9 Diaphragmatic hernia without obstruction or gangrene; K57.90 Diverticulosis of intestine, part unspecified, without perforation or abscess without bleeding; J44.9 Chronic obstructive pulmonary disease, unspecified; N18.3 Chronic kidney disease, stage 3 (moderate); E11.22 Type 2 diabetes mellitus with diabetic chronic kidney disease; K66.0 Peritoneal adhesions (postprocedural) (postinfection); I12.9 Hypertensive chronic kidney disease with stage 1 through stage 4 chronic kidney disease, or unspecified chronic kidney disease; E78.5 Hyperlipidemia, unspecified; Z68.32 Body mass index [BMI] 32.0-32.9, adult; Z79.82 Long term (current) use of aspirin; Z87.891 Personal history of nicotine dependence; Z82.5 Family history of asthma and other chronic lower respiratory diseases; Z87.442 Personal history of urinary calculi
CPT/HCPCS: 36415; 71045; 71250-TC; 74300; 76700-TC; 80053; 80061; 80307; 81000-TC; 82150-TC; 82550-TC; 82962; 83605; 83690-TC; 83880; 84100-TC; 84153; 84484; 84550-TC; 85025; 85610-TC; 85730-TC; 86886; 86900; 86901; 87070; 87070-TC; 87075-TC; 87081; 88304; 93005; 93306; 96365; 96367; 96375; 96376; 97116-GP; 97530-GP; 99285; C1727; C9399; G0378; G0482; J0295; J1100; J1170; J1815; J1885; J2250; J2270; J2405; J2543; J2704; J2765; J3010; J3490; J7030; J7050; Q9967

== ENCOUNTER 2021-05-14 20:27 | Emergency (ER) | payer OTHER, SELFPAY ==
[~2021-05-14] VITALS: Ht 167.6 cm; Wt 72.6 kg
[~2021-05-14 20:27] MED LIST changes: -ASCO500T20 PO; -LIP10 PO; +LIP20 PO
[2021-05-14 21:21] VITALS: BP_SYST 134
--- NOTE | 2021-05-14 21:21 | NUR ---
Patient to ER bed 08 to gown for evaluation. Side rails up.
--- NOTE | 2021-05-14 21:33 | NUR ---
Pt awake a/o x4. speech clear and coherent. pt c/o rlq abd pain 01/19 x4 days. family at bedside. denies n/v/d/fever. pt states he did have hard stool yesterday. also c/o being gassy. pt states he currently takes prilosec and gas x. pt taken to ct by tech via alecia. munira.
--- NOTE | 2021-05-14 21:52 | NUR ---
Pt back to room [address] Labs drawn and sent to lab.
[2021-05-14 21:59] LABS: BASOPHILS # (AUTO) 0.1 K/uL (0.0-0.2); BASOPHILS % (AUTO) 0.6 % (0.0-2.0); EOSINOPHILS # (AUTO) 0.4 K/uL (0.0-0.4); EOSINOPHILS % (AUTO) 4.3 % (0.0-4.0); HEMATOCRIT 42.3 % (36-54); LYMPHOCYTES # (AUTO) 1.8 K/uL (1.0-5.5); LYMPHOCYTES % (AUTO) 17.1 % (20.5-51.5); MEAN CORPUSCULAR HEMOGLOBIN 28 pg (27-31); MEAN CORPUSCULAR HGB CONC 33 % (32-36); MEAN CORPUSCULAR VOLUME 85 fL (79.0-98.0); MONOCYTES # (AUTO) 1.1 K/uL (0.0-1.0); MONOCYTES % (AUTO) 10.3 % (1.7-9.3); NEUTROPHILS % (AUTO) 67.7 % (40.0-70.0); PLATELET COUNT (AUTO) 183 K/uL (130-430); RED BLOOD CELL COUNT(AUTO) 4.98 MIL/uL (4.2-6.2); RED CELL DISTRIBUTION WIDTH 13.1 % (9.0-15.0); WHITE BLOOD COUNT (AUTO) 10.3 K/uL (4.8-10.8)
--- NOTE | 2021-05-14 22:04 | NUR ---
Dr Ortega at bedside for eval
[2021-05-14 22:13] LABS: CALCIUM 8.4 mg/dL (8.4-11.0); CREATININE 2.89 mg/dL (0.55-1.30); POTASSIUM 4.4 mmol/L (3.5-5.1)
[2021-05-14] MEDS ORDERED: MORPHINE 4 MG INJ. 4 MG/ML VIAL IVP ONE (22:15)
[2021-05-14 22:19] LABS: ALBUMIN 3.7 g/dL (3.4-4.8); TOTAL BILIRUBIN 0.4 mg/dL (0.0-1.0)
--- NOTE | 2021-05-14 23:01 | NUR ---
Dr Ortega at bedside speaking with pt
[2021-05-14] MEDS ORDERED: NACL 0.9% 1,000 ML IV ONE (23:15)
[2021-05-14] MEDS ORDERED: KETOROLAC TROMETHAMINE 30 MG VIAL IVP ONE (23:15)
[2021-05-15] MEDS ORDERED: NAPR-690 PO (00:29)
--- NOTE | 2021-05-15 00:39 | NUR ---
Patient given written and verbal discharge instructions and verbalizes understanding. ER MD discussed with patient the results and treatment provided. Patient in stable condition. ID arm band removed. IV catheter removed intact and dressing applied, no active bleeding. Rx of naproxen given. Patient educated on pain management and to follow up with PMD. Pain Scale 0/10 Opportunity for questions provided and answered. Medication side effect fact sheet provided.
[2021-05-15 01:05] VITALS: BP_SYST 122
== END 2021-05-15 01:05 | disposition home or self-care (01) ==
LOC: SED 20:27
DX: N20.0 Calculus of kidney (principal); E11.9 Type 2 diabetes mellitus without complications; I10 Essential (primary) hypertension
CPT/HCPCS: 36415; 74176; 76376; 80053; 83690; 85025; 96361; 96374; 96375; 99284; J1885; J2270

== ENCOUNTER 2021-06-02 20:35 | Emergency (ER) | payer OTHER, SELFPAY ==
[~2021-06-02] VITALS: Ht 165.1 cm; Wt 84.8 kg
[~2021-06-02 20:35] MED LIST changes: +NAPR-690 PO
[2021-06-02] MEDS ORDERED: HYDROcodone/ACETAMIN 7.5-325 MG TAB PO ONE (21:00)
[2021-06-02 21:06] VITALS: BP_SYST 147
[2021-06-02 21:48] LABS: CALCIUM 7.6 mg/dL (8.4-11.0); CREATININE 2.55 mg/dL (0.55-1.30); POTASSIUM 4.5 mmol/L (3.5-5.1)
[2021-06-02 21:50] LABS: BASOPHILS # (AUTO) 0.4 K/uL (0.0-0.2); BASOPHILS % (AUTO) 4.1 % (0.0-2.0); EOSINOPHILS # (AUTO) 0.5 K/uL (0.0-0.4); EOSINOPHILS % (AUTO) 5.3 % (0.0-4.0); HEMATOCRIT 42.1 % (36-54); HEMOGLOBIN 13.9 g/dL (14.0-18.0); LYMPHOCYTES # (AUTO) 1.3 K/uL (1.0-5.5); LYMPHOCYTES % (AUTO) 14.9 % (20.5-51.5); MEAN CORPUSCULAR HEMOGLOBIN 28 pg (27-31); MEAN CORPUSCULAR HGB CONC 33 % (32-36); MEAN CORPUSCULAR VOLUME 85 fL (79.0-98.0); MONOCYTES # (AUTO) 0.5 K/uL (0.0-1.0); MONOCYTES % (AUTO) 6.3 % (1.7-9.3); NEUTROPHILS % (AUTO) 69.4 % (40.0-70.0); PLATELET COUNT (AUTO) 200 K/uL (130-430); RED BLOOD CELL COUNT(AUTO) 4.96 MIL/uL (4.2-6.2); RED CELL DISTRIBUTION WIDTH 13.5 % (9.0-15.0); WHITE BLOOD COUNT (AUTO) 8.7 K/uL (4.8-10.8)
[2021-06-02 21:57] LABS: ALBUMIN 3.8 g/dL (3.4-4.8); TOTAL BILIRUBIN 0.4 mg/dL (0.0-1.0)
[2021-06-02 22:14] LABS: BILIRUBIN,URINE NEGATIVE (NEGATIVE); BLOOD, URINE 3+ (NEGATIVE); CLARITY/URINE SL CLOUDY (CLEAR); COLOR,URINE YELLOW (YELLOW); GLUCOSE,URINE NEGATIVE (NEGATIVE); KETONES,URINE NEGATIVE (NEGATIVE); LEUKOCYTE ESTERASE ,URINE NEGATIVE (NEGATIVE); NITRITE, URINE NEGATIVE (NEGATIVE); PH,URINE 5.5 (5.0-8.0); PROTEIN URINE 1+ (NEGATIVE); UROBILINOGEN,URINE 0.2 (0.2-1.0)
[2021-06-02 22:26] LABS: BACTERIA,URINE RARE /HPF (None Seen); MUCUS,URINE 1+ /LPF (None Seen); RBC,URINE >100 /HPF (0-3); WBC,URINE 0-3 /HPF (0-3)
[2021-06-02] MEDS ORDERED: ONDANSETRON HCL 4 MG/2 ML VIAL IVP ONE (23:45)
[2021-06-02] MEDS ORDERED: KETOROLAC TROMETHAMINE 30 MG VIAL IVP ONE (23:45)
[2021-06-02] MEDS ORDERED: NACL 0.9% 1,000 ML IV ONE (23:45)
[2021-06-03] MEDS ORDERED: HYDROmorphone 1 MG/ML INJ. CARTRIDGE IVP ONE ×2 (01:00→02:00)
[2021-06-03] MEDS ORDERED: ONDA-8 TL (03:19)
[2021-06-03] MEDS ORDERED: OXYC-128 PO (03:19)
== END 2021-06-03 05:53 | disposition home or self-care (01) ==
LOC: SED 20:35
DX: N13.2 Hydronephrosis with renal and ureteral calculous obstruction (principal); R74.8 Abnormal levels of other serum enzymes; I10 Essential (primary) hypertension; E11.9 Type 2 diabetes mellitus without complications; Z79.84 Long term (current) use of oral hypoglycemic drugs; Z79.899 Other long term (current) drug therapy; Z20.822 Contact with and (suspected) exposure to COVID-19
CPT/HCPCS: 36415; 74176; 76376; 80053; 81000; 83690; 84484; 85025; 87426; 93005; 96361; 96374; 96375; 96376; 99285; J1170; J1885; J2405; J7030

== ENCOUNTER 2021-06-17 20:38 | Emergency (ER) | payer OTHER, SELFPAY ==
[~2021-06-17] VITALS: Ht 165.1 cm; Wt 84.4 kg
[~2021-06-17 20:38] MED LIST changes: +ONDA-8 TL; +OXYC-128 PO
[2021-06-17 20:53] VITALS: BP_SYST 124
[2021-06-17] MEDS ORDERED: NACL 0.9% 1,000 ML IV ONE (21:15)
[2021-06-17 21:57] LABS: BASOPHILS # (AUTO) 0.1 K/uL (0.0-0.2); BASOPHILS % (AUTO) 0.6 % (0.0-2.0); EOSINOPHILS # (AUTO) 0.2 K/uL (0.0-0.4); EOSINOPHILS % (AUTO) 1.5 % (0.0-4.0); HEMATOCRIT 38.2 % (36-54); HEMOGLOBIN 12.5 g/dL (14.0-18.0); LYMPHOCYTES # (AUTO) 1.6 K/uL (1.0-5.5); LYMPHOCYTES % (AUTO) 10.1 % (20.5-51.5); MEAN CORPUSCULAR HEMOGLOBIN 28 pg (27-31); MEAN CORPUSCULAR HGB CONC 33 % (32-36); MEAN CORPUSCULAR VOLUME 85 fL (79.0-98.0); MONOCYTES # (AUTO) 0.8 K/uL (0.0-1.0); MONOCYTES % (AUTO) 5.1 % (1.7-9.3); NEUTROPHILS # (AUTO) 13.4 K/uL (1.8-7.7); NEUTROPHILS % (AUTO) 82.7 % (40.0-70.0); PLATELET COUNT (AUTO) 294 K/uL (130-430); RED BLOOD CELL COUNT(AUTO) 4.52 MIL/uL (4.2-6.2); RED CELL DISTRIBUTION WIDTH 13.1 % (9.0-15.0); WHITE BLOOD COUNT (AUTO) 16.2 K/uL (4.8-10.8)
[2021-06-17 22:04] LABS: CALCIUM 7.4 mg/dL (8.4-11.0); CREATININE 3.15 mg/dL (0.55-1.30); POTASSIUM 4.5 mmol/L (3.5-5.1)
[2021-06-17 22:13] LABS: ALBUMIN 3.4 g/dL (3.4-4.8); TOTAL BILIRUBIN 0.3 mg/dL (0.0-1.0)
[2021-06-18 01:19] LABS: BILIRUBIN,URINE NEGATIVE (NEGATIVE); BLOOD, URINE 3+ (NEGATIVE); CLARITY/URINE CLEAR (CLEAR); COLOR,URINE YELLOW (YELLOW); GLUCOSE,URINE NEGATIVE (NEGATIVE); KETONES,URINE NEGATIVE (NEGATIVE); LEUKOCYTE ESTERASE ,URINE 1+ (NEGATIVE); NITRITE, URINE NEGATIVE (NEGATIVE); PROTEIN URINE NEGATIVE (NEGATIVE); UROBILINOGEN,URINE 0.2 (0.2-1.0)
[2021-06-18 02:15] LABS: RBC,URINE 0-3 /HPF (0-3)
[2021-06-18] MEDS ORDERED: CEPH-548 PO (02:15)
[2021-06-18 02:16] LABS: BACTERIA,URINE None Seen /HPF (None Seen); MUCUS,URINE 1+ /LPF (None Seen); TRICHOMONAS,URINE None Seen /HPF (None Seen); YEAST,URINE None Seen /HPF (None Seen)
[2021-06-18 02:20] VITALS: BP_SYST 112
== END 2021-06-18 02:20 | disposition home or self-care (01) ==
LOC: SED 20:38
DX: N39.0 Urinary tract infection, site not specified (principal); R55 Syncope and collapse; I10 Essential (primary) hypertension; E11.9 Type 2 diabetes mellitus without complications; J45.909 Unspecified asthma, uncomplicated
CPT/HCPCS: 36415; 71045; 80053; 81000; 82550; 82962; 84484; 85025; 87086; 93005; 96360; 99285; J7030

== ENCOUNTER 2021-06-25 06:13 | Day surgery (SDC) | payer OTHER, SELFPAY ==
[2021-06-24 17:55] LABS: ALBUMIN 3.6 g/dL (3.4-4.8); CALCIUM 8.5 mg/dL (8.4-11.0); CREATININE 2.58 mg/dL (0.55-1.30); POTASSIUM 4.9 mmol/L (3.5-5.1); TOTAL BILIRUBIN 0.4 mg/dL (0.0-1.0)
[2021-06-24 19:10] LABS: BASOPHILS # (AUTO) 0.1 K/uL (0.0-0.2); BASOPHILS % (AUTO) 1.1 % (0.0-2.0); EOSINOPHILS # (AUTO) 0.5 K/uL (0.0-0.4); EOSINOPHILS % (AUTO) 5.3 % (0.0-4.0); HEMATOCRIT 38.2 % (36-54); HEMOGLOBIN 12.6 g/dL (14.0-18.0); LYMPHOCYTES # (AUTO) 1.8 K/uL (1.0-5.5); LYMPHOCYTES % (AUTO) 21.8 % (20.5-51.5); MEAN CORPUSCULAR HEMOGLOBIN 28 pg (27-31); MEAN CORPUSCULAR HGB CONC 33 % (32-36); MEAN CORPUSCULAR VOLUME 85 fL (79.0-98.0); MONOCYTES # (AUTO) 0.7 K/uL (0.0-1.0); MONOCYTES % (AUTO) 8.6 % (1.7-9.3); NEUTROPHILS # (AUTO) 5.4 K/uL (1.8-7.7); NEUTROPHILS % (AUTO) 63.2 % (40.0-70.0); PLATELET COUNT (AUTO) 325 K/uL (130-430); RED BLOOD CELL COUNT(AUTO) 4.49 MIL/uL (4.2-6.2); RED CELL DISTRIBUTION WIDTH 13.6 % (9.0-15.0); WHITE BLOOD COUNT (AUTO) 8.5 K/uL (4.8-10.8)
[~2021-06-25] VITALS: Ht 162.6 cm; Wt 76.2 kg
[~2021-06-25 06:13] MED LIST changes: +CEPH-548 PO
[2021-06-25 06:41] LABS: BILIRUBIN,URINE NEGATIVE (NEGATIVE); BLOOD, URINE 3+ (NEGATIVE); CLARITY/URINE CLOUDY (CLEAR); COLOR,URINE YELLOW (YELLOW); GLUCOSE,URINE NEGATIVE (NEGATIVE); KETONES,URINE NEGATIVE (NEGATIVE); LEUKOCYTE ESTERASE ,URINE TRACE (NEGATIVE); NITRITE, URINE NEGATIVE (NEGATIVE); PROTEIN URINE 1+ (NEGATIVE); UROBILINOGEN,URINE 0.2 (0.2-1.0)
[2021-06-25 06:52] LABS: BACTERIA,URINE FEW /HPF (None Seen); RBC,URINE 20-50 /HPF (0-3)
[2021-06-25] MEDS ORDERED: PROPOFOL 200MG/ 20ML VIAL (DIPRIVAN) IV ONE (07:30)
[2021-06-25] MEDS ORDERED: KETOROLAC TROMETHAMINE 30 MG VIAL ONE (07:30)
[2021-06-25] MEDS ORDERED: ROCURONIUM BROMIDE 10 MG/ML (ZEMURON) ONE (07:30)
[2021-06-25] MEDS ORDERED: SUGAMMADEX SODIUM 200 MG/2 ML VIAL IV ONE (07:30)
[2021-06-25] MEDS ORDERED: LIDOCAINE 1% 10 MG/ML, 20 ML MDV ONE (07:30)
[2021-06-25] MEDS ORDERED: ALBUTEROL MDI INHALATION 8 GM INH ONE (07:30)
[2021-06-25] MEDS ORDERED: MIDAZOLAM HCL 5 MG/ML VIAL (VERSED) IV ONE (07:30)
[2021-06-25] MEDS ORDERED: NS IRRIG SOLN 1000 ML IR ONE (07:30)
[2021-06-25] MEDS ORDERED: NS 1000 ML IV.SOLN IV ONE (07:30)
[2021-06-25] MEDS ORDERED: DESFLURANE 15 MIN GAS INH ONE (07:30)
[2021-06-25] MEDS ORDERED: fentaNYL CITRATE 250 MCG/5 ML AMP ONE (07:30)
[2021-06-25] MEDS ORDERED: WATER FOR IRRIGATION,STERILE 1,000 ML IRRIG.SOLN IR ONE (07:30)
[2021-06-25] MEDS ORDERED: ePHEDrine sulfate 50 MG/ML VIAL ONE (07:30)
[2021-06-25] MEDS ORDERED: ONDANSETRON HCL 4 MG/2 ML VIAL ONE (07:30)
[2021-06-25] MEDS ORDERED: LR 1,000 ML IV.SOLN IV ONE (07:30)
[2021-06-25] MEDS ORDERED: cefTRIAXone 1 GM VIAL ONE (07:30)
[2021-06-25] MEDS ORDERED: HYDROmorphone 1 MG/ML INJ. CARTRIDGE IVP PRN ×2 (08:15)
[2021-06-25] MEDS ORDERED: MEPERIDINE HCL/PF 25 MG/ML DISP.SYRIN IVP PRN (08:15)
[2021-06-25] MEDS ORDERED: METOCLOPRAMIDE HCL 10 MG/2 ML VIAL IVP PRN (08:15)
[2021-06-25] MEDS ORDERED: LR 1,000 ML IV SCH (08:15)
[2021-06-25] MEDS ORDERED: hydrALAZINE HCL 20 MG/ML VIAL IVP PRN (08:15)
[2021-06-25] MEDS ORDERED: LABETALOL 100 MG/ 20ML VIAL IVP PRN (08:15)
[2021-06-25 11:43] VITALS: BP_SYST 97
== END 2021-06-25 11:35 | disposition home or self-care (01) ==
LOC: SDS 06:13 → SMU 06:14 → SDS 11:35
PROVIDERS: ATTEND Urology
DX: N13.2 Hydronephrosis with renal and ureteral calculous obstruction (principal); I10 Essential (primary) hypertension; E11.9 Type 2 diabetes mellitus without complications; J45.909 Unspecified asthma, uncomplicated; E66.9 Obesity, unspecified; Z79.899 Other long term (current) drug therapy; Z20.822 Contact with and (suspected) exposure to COVID-19
CPT/HCPCS: 36415; 52332; 71046; 80053; 81000; 82948; 82962; 85025; 87426; C1758; C1769; C1894; C2625; J0696; J1885; J2001; J2250; J2405; J2704; J3010; J3490; J7030; J7120; Q9967; 76000; 93005

== ENCOUNTER 2021-06-30 05:30 | Day surgery (SDC) | payer OTHER, SELFPAY ==
[~2021-06-30] VITALS: Ht 162.6 cm; Wt 76.2 kg
[2021-06-30] MEDS ORDERED: DEXAMETHASONE SOD PHOSPHATE 4 MG/ML VIAL IVP ONE (07:38)
[2021-06-30] MEDS ORDERED: NS IRRIG SOLN 1000 ML IR ONE (07:38)
[2021-06-30] MEDS ORDERED: NS 1000 ML IV.SOLN IV ONE (07:38)
[2021-06-30] MEDS ORDERED: PROPOFOL 200MG/ 20ML VIAL (DIPRIVAN) IV ONE (07:38)
[2021-06-30] MEDS ORDERED: ONDANSETRON HCL 4 MG/2 ML VIAL IVP ONE (07:38)
[2021-06-30] MEDS ORDERED: cefTRIAXone 1 GM VIAL IV ONE (07:38)
[2021-06-30] MEDS ORDERED: LR 1,000 ML IV.SOLN IV ONE (07:38)
[2021-06-30] MEDS ORDERED: DESFLURANE 15 MIN GAS INH ONE (07:38)
[2021-06-30] MEDS ORDERED: fentaNYL CITRATE/PF 100 MCG/2 ML AMP IVP ONE (07:38)
[2021-06-30] MEDS ORDERED: ACETAMINOPHEN I.V. 1000 MG 100 ML IV PRN (09:00)
[2021-06-30] MEDS ORDERED: ONDANSETRON HCL 4 MG/2 ML VIAL IVP PRN (09:00)
[2021-06-30 10:34] VITALS: BP_SYST 107
== END 2021-06-30 10:10 | disposition home or self-care (01) ==
LOC: SDS 05:30
PROVIDERS: ATTEND Urology
DX: N13.2 Hydronephrosis with renal and ureteral calculous obstruction (principal); I12.9 Hypertensive chronic kidney disease with stage 1 through stage 4 chronic kidney disease, or unspecified chronic kidney disease; N18.9 Chronic kidney disease, unspecified; K21.9 Gastro-esophageal reflux disease without esophagitis; Z20.822 Contact with and (suspected) exposure to COVID-19; Z79.899 Other long term (current) drug therapy
CPT/HCPCS: 36415; 52356; 82360; 82962; 87426; 88300; C1758; C1769; C2625; J0696; J1100; J2405; J2704; J3010; J7030; J7120; Q9967; 76000

== ENCOUNTER 2021-08-25 11:00 | Emergency (ER) | payer OTHER ==
[~2021-08-25] VITALS: Ht 165.1 cm; Wt 81.6 kg
[2021-08-25 11:03] VITALS: BP_SYST 120
[2021-08-25] MEDS ORDERED: FUROSEMIDE 40 MG/4 ML VIAL IVP ONE (12:45)
[2021-08-25 12:46] LABS: BASOPHILS # (AUTO) 0.1 K/uL (0.0-0.2); BASOPHILS % (AUTO) 1.1 % (0.0-2.0); EOSINOPHILS # (AUTO) 0.4 K/uL (0.0-0.4); HEMATOCRIT 35.9 % (36-54); HEMOGLOBIN 11.8 g/dL (14.0-18.0); LYMPHOCYTES # (AUTO) 1.2 K/uL (1.0-5.5); LYMPHOCYTES % (AUTO) 19.8 % (20.5-51.5); MEAN CORPUSCULAR HEMOGLOBIN 28 pg (27-31); MEAN CORPUSCULAR HGB CONC 33 % (32-36); MEAN CORPUSCULAR VOLUME 86 fL (79.0-98.0); MONOCYTES # (AUTO) 0.5 K/uL (0.0-1.0); MONOCYTES % (AUTO) 8.1 % (1.7-9.3); NEUTROPHILS # (AUTO) 3.8 K/uL (1.8-7.7); PLATELET COUNT (AUTO) 201 K/uL (130-430); RED BLOOD CELL COUNT(AUTO) 4.17 MIL/uL (4.2-6.2); RED CELL DISTRIBUTION WIDTH 14.3 % (9.0-15.0)
[2021-08-25 12:50] LABS: ANION GAP 9 (5-15); CALCIUM 8.3 mg/dL (8.4-11.0); CHLORIDE 106 mmol/L (98-107); CREATININE 2.49 mg/dL (0.55-1.30); GLUCOSE 189 mg/dL (70-99); POTASSIUM 4.9 mmol/L (3.5-5.1); SODIUM SERUM 137 mmol/L (136-145); UREA NITROGEN, BLOOD 38 mg/dL (8-21)
[2021-08-25 12:53] LABS: GFR AFRICAN AMERICAN 33 mL/min (>90)
[2021-08-25 12:59] LABS: ALANINE AMINOTRANSFERASE 37 U/L (12-78); ALBUMIN 3.7 g/dL (3.4-4.8); ASPARTATE AMINOTRANSFERASE 20 U/L (10-37); TOTAL BILIRUBIN 0.5 mg/dL (0.0-1.0)
[2021-08-25 16:02] VITALS: BP_SYST 110
== END 2021-08-25 16:02 | disposition home or self-care (01) ==
LOC: SED 11:21
DX: E87.70 Fluid overload, unspecified (principal); I12.9 Hypertensive chronic kidney disease with stage 1 through stage 4 chronic kidney disease, or unspecified chronic kidney disease; E11.22 Type 2 diabetes mellitus with diabetic chronic kidney disease; E11.65 Type 2 diabetes mellitus with hyperglycemia; N18.30 Chronic kidney disease, stage 3 unspecified; J45.909 Unspecified asthma, uncomplicated; Z79.899 Other long term (current) drug therapy
CPT/HCPCS: 36415; 71045; 80053; 83880; 84484; 85025; 93005; 96374; 99285; J1940